=== PATIENT | female | born 2005 | race Caucasian/White ===

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

== ENCOUNTER 2025-04-07 17:47 | Outpatient (CLI) | payer OTHER, SELFPAY | END 2025-04-07 17:48 | disposition home or self-care (01) | LOC: NFLDREF 04-11 08:03 | PROVIDERS: PCP Physician Assistant Medical; Referring Provider Physician Assistant Medical | DX: R30.0 Dysuria (principal); N30.00 Acute cystitis without hematuria | CPT/HCPCS: 87086 ==

== ENCOUNTER 2025-04-13 13:33 | Outpatient (CLI) | payer OTHER, SELFPAY | END 2025-04-13 13:34 | disposition home or self-care (01) | LOC: NFLDREF 13:37 | PROVIDERS: PCP Physician Assistant Medical; Visit Provider Registered Nurse | DX: Z11.3 Encounter for screening for infections with a predominantly sexual mode of transmission (principal) | CPT/HCPCS: 87491; 87591 ==